=== PATIENT | female | born 1950 | race African-American/Black ===

== ENCOUNTER 2023-01-20 10:36 | Emergency (ER) | payer OTHER ==
[~2023-01-20] VITALS: Ht 170.2 cm; Wt 78.0 kg
[2023-01-20 12:22] LABS: BASOPHILS % 0.3 % (0.0-2.0); EOSINOPHILS % 2.5 % (0.0-5.0); HEMATOCRIT. 35.4 % (36.0-48.0); HEMOGLOBIN. 11.6 g/dL (12.0-16.0); LYMPHOCYTES % 11.6 % (20.0-50.0); MEAN CORPUSCULAR HEMOGLOBIN 30.9 pg (28.0-32.0); MEAN CORPUSCULAR VOLUME 94.4 fL (81.0-99.0); MEAN PLATELET VOLUME 9.8 fl (7.4-10.4); NEUTROPHILS % 80.6 % (40.0-76.0); PLATELET 201 x1000/uL (130-400); RED BLOOD CELL COUNT 3.74 mill/uL (4.2-5.4); RED CELL DISTRIBUTION WIDTH 17.3 % (11.6-14.6)
[2023-01-20 12:26] LABS: CHLORIDE 109 mEq/L (98-107)
[2023-01-20] MEDS ORDERED: SODIUM CHLORIDE 0.9% 1,000 ML IV ONE (14:30)
[2023-01-20 17:58] VITALS: BP 141/68
== END 2023-01-20 21:11 | disposition short-term general hospital (02) ==
LOC: ER 10:36 → CANBEDREQ 18:00 → ER 21:11
DX: R55 Syncope and collapse (principal); E11.9 Type 2 diabetes mellitus without complications; I10 Essential (primary) hypertension; Z20.822 Contact with and (suspected) exposure to COVID-19; Z88.0 Allergy status to penicillin; Z88.8 Allergy status to other drugs, medicaments and biological substances
CPT/HCPCS: 36415; 71045; 80053; 83880; 84484; 85025; 87426; 93005; 96360; 99285; C9803; J7030

== ENCOUNTER 2024-03-24 15:59 | Emergency (ER) | payer OTHER ==
[~2024-03-24] VITALS: Ht 165.1 cm; Wt 85.0 kg
[2024-03-24 16:06] VITALS: O2SAT 99
[2024-03-24] MEDS: ONDANSETRON HCL 4MG/2ML INJ IV STA (16:57)
[2024-03-24] MEDS: SODIUM CHLORIDE 0.9% 1,000 ML IV ONE (16:59)
[2024-03-24 17:02] LABS: HEMATOCRIT. 31.1 % (36.0-48.0); HEMOGLOBIN. 10.1 g/dL (12.0-16.0); MEAN CORPUSCULAR HGB CONC 32.7 g/dL (31.0-37.0); MEAN CORPUSCULAR VOLUME 94.9 fL (81.0-99.0); MEAN PLATELET VOLUME 9.7 fl (7.4-10.4); PLATELET 213 x1000/uL (130-400); RED BLOOD CELL COUNT 3.27 mill/uL (4.2-5.4); RED CELL DISTRIBUTION WIDTH 16.9 % (11.6-14.6); WHITE BLOOD COUNT 8.6 x1000/uL (4.5-11.0)
[2024-03-24 17:05] LABS: DIFFERENTIAL COMMENT 1
[2024-03-24 17:08] LABS: CHLORIDE 104 mEq/L (98-107); POTASSIUM 3.4 mEq/L (3.5-5.1); SODIUM 141 mEq/L (136-145)
[2024-03-24 17:09] LABS: CALCIUM 8.7 mg/dL (8.7-10.4); CARBON DIOXIDE 30 mEq/L (21-32)
[2024-03-24 17:14] LABS: GLUCOSE 166 mg/dL (70-105); INR 1.1; PROTHROMBIN TIME 12.3 sec (9.6-11.0); UREA NITROGEN BLOOD 22 mg/dL (9-23)
[2024-03-24 17:15] LABS: TROPONIN I HIGH SENSITIVITY 7 ng/L (3.0-34)
[2024-03-24 17:23] LABS: PLATELET ESTIMATE NORMAL
[2024-03-24] MEDS ORDERED: ONDA4TAB11 PO (19:13)
[2024-03-24 20:35] LABS: CLARITY URINE CLEAR (CLEAR); COLOR URINE YELLOW (YELLOW); GLUCOSE URINE NEGATIVE (NEGATIVE); KETONES URINE NEGATIVE (NEGATIVE); LEUKOCYTE ESTERASE URINE NEGATIVE (NEGATIVE); NITRITE URINE NEGATIVE (NEGATIVE); OCCULT BLOOD URINE TRACE (NEGATIVE); PH URINE 5.5 (4.5-8.0); PROTEIN URINE 2+ (NEGATIVE); SPECIFIC GRAVITY URINE 1.013 (1.005-1.030); UROBILINOGEN URINE 0.2 E.U./dL (0.2-1.0)
[2024-03-24 20:54] LABS: BACTERIA URINE TRACE; RBC URINE 0-2 /hpf (0-2); SQUAMOUS EPITHELIAL CELL URINE FEW /lpf (RARE/1+); WBC URINE 0-2 /hpf (0-2)
[2024-03-24 22:00] VITALS: BP 151/70; PULSE 81; RESP 18; TEMP 98.3
== END 2024-03-24 22:15 | disposition home or self-care (01) ==
LOC: ER 16:16
DX: A08.4 Viral intestinal infection, unspecified (principal); I11.0 Hypertensive heart disease with heart failure; I50.9 Heart failure, unspecified; E11.9 Type 2 diabetes mellitus without complications; E78.00 Pure hypercholesterolemia, unspecified; J45.909 Unspecified asthma, uncomplicated
CPT/HCPCS: 99285; 70450; 96374; 71045; 96361; 80048; 81003; 83690; 85025; 85610; 84484; 36415; 74176; 93005; J2405; J7030